=== PATIENT | male | born 1960 | race Caucasian/White ===

== ENCOUNTER 2016-12-20 09:57 | Day surgery (SDC) | payer OTHER ==
[~2016-12-20] VITALS: Ht 172.7 cm; Wt 89.1 kg
[2016-12-20 10:41] VITALS: Ht 172.7 cm; Wt 89.1 kg
[2016-12-20] MEDS ORDERED: FERROUS SULFATE (10:45)
[2016-12-20] MEDS ORDERED: OMEPRAZOLE DAILY (10:45)
[2016-12-20 11:10] VITALS: BP 143/114; PULSE 92; RESP 13
[2016-12-20] MEDS ORDERED: PROPOFOL 80 ML ONE (11:52)
[2016-12-20 12:22] VITALS: BP 112/64; PULSE 74; RESP 15
--- NOTE | 2017-01-17 08:14 | GILP ---
DATE OF PROCEDURE: PROCEDURE PERFORMED: 1. Esophagogastroduodenoscopy and biopsy. 2. Colonoscopy and biopsy. SURGEON: Lopez Coats MD PREOPERATIVE DIAGNOSES: 1. Abdominal pain. 2. Iron deficiency anemia. POSTOPERATIVE DIAGNOSES: 1. Gastritis. 2. Gastric mucosal biopsies were taken for H. pylori test. 3. Small bowel biopsies were taken to rule out celiac disease. 4. Colonoscopy all the way to the cecum. 5. Three small colon polyps were removed with the biopsy forceps. 6. Small cecal polyp, removed with biopsy forceps. 7. Internal hemorrhoids. INDICATION: Miss Edwin Fink is a 56-year-old female patient who had upper abdominal pain and iron-deficiency anemia. The patient was scheduled for endoscopic examination and colonoscopy for further evaluation. The procedures and possible complications were well explained to the patient. The patient understood and consented to the procedures. DESCRIPTION OF PROCEDURE: The gastroscope was carefully introduced into the esophagus under direct vision. It was advanced to the stomach, into the pylorus, into the duodenal bulb, descending duodenum. Findings: Esophagus mucosa was normal. Stomach; the patient had gastritis and gastric mucosal biopsies were taken for H. pylori test. The duodenum was normal. Small bowel biopsies were taken to rule out celiac disease. The colonoscope was carefully introduced into the rectum. Under direct vision it was advanced all the way to the cecum. Findings: The patient had 3 small colon polyps, and they were removed using the biopsy forceps. The patient was also noted to have a cecal polyp and it was also removed using the biopsy forceps. She had internal hemorrhoids. She tolerated the procedures very well. There is no complications from the procedure. At the end of procedure she was awake with stable vital signs and she was discharged home to the care of her family. IMPRESSION: Please see postoperative diagnoses. PLAN: 1. Await histopathology results. 2. Omeprazole 5 mg p.o. q.a.m. 3. Next screening colonoscopy in 5 years. Dictated By: MD JHONNY German/louise/chaz /Document#: [id number]
== END 2016-12-20 16:01 | disposition home or self-care (01) ==
LOC: EDSEX 09:57 → GIL 09:57
PROVIDERS: ATTEND Internal Medicine Gastroenterology
DX: K29.70 Gastritis, unspecified, without bleeding (principal); D50.0 Iron deficiency anemia secondary to blood loss (chronic); D12.0 Benign neoplasm of cecum; B96.81 Helicobacter pylori [H. pylori] as the cause of diseases classified elsewhere; K64.8 Other hemorrhoids; I10 Essential (primary) hypertension
CPT/HCPCS: 43239; 45380; 87081; 88305; Z7610